=== PATIENT | male | born 1935 | race Caucasian/White ===

== ENCOUNTER → 2016-08-05 | Outpatient (CLI) | payer BC ==
[~2016-08-05] MED LIST: ALPPOPS5 OPB; BROM100T PO; CALC-51; CHOL1CAP67; CYAN10005 PO; DUTA0.5C PO; GLUC500C4 PO; HYDRSOL30; HYDRSOL30 OTB; LEVO0.5S24 OPB; LEVO75TA PO; MULT-506 PO; PROP15TA; SILD100T PO; TAMS0.4C38 PO; TEMAZAPAM PO; TERB1CRE10 TOP; UNABLE; [UNRECOGNIZED DRUG - CODE]; [UNRECOGNIZED DRUG - OTHER] OTB
[2016-08-05 10:34] LABS: HEMATOCRIT 41.5 % (42-52); MEAN CELL VOLUME 87.2 fL (80-100); MEAN CORPUSCULAR HEMOGLOBIN 30.5 pg (25-34); MEAN CORPUSCULAR HGB CONC 34.9 g/dl (32-36); MEAN PLATELET VOLUME 9.3 fL (7.4-10.4); PLATELET COUNT 177 K/uL (130-400); RED BLOOD COUNT 4.76 M/uL (4.7-6.1); WHITE BLOOD COUNT 4.93 K/uL (4.8-10.8)
[2016-08-05 10:45] LABS: ALT/SGPT 26 U/L (12-78); BLOOD UREA NITROGEN 15 mg/dl (7-18); BUN/CREATININE RATIO 13.2 (10-20); CALCIUM 8.7 mg/dl (8.5-10.1); CARBON DIOXIDE 26 mmol/L (21-32); CHLORIDE 108 mmol/L (98-107); GLUCOSE 97 mg/dl (70-99); SODIUM 143 mmol/L (136-145)
[2016-08-05 10:47] LABS: ALB/GLOB RATIO 1.1 (0.9-2); ALKALINE PHOSPHATASE 74 U/L (45-117); AST/SGOT 16 U/L (15-37)
== END | disposition home or self-care (01) ==
LOC: C.LABFOXMH 10:14
PROVIDERS: ATTEND Internal Medicine
DX: R19.7 Diarrhea, unspecified (principal)

== ENCOUNTER 2016-12-04 12:27 | Emergency (ER) | payer BC ==
[~2016-12-04] VITALS: Ht 177.8 cm; Wt 95.7 kg
[~2016-12-04 12:27] MED LIST changes: -CYAN10005 PO; -HYDRSOL30 OTB; -LEVO0.5S24 OPB; -MULT-506 PO; -TERB1CRE10 TOP; -[UNRECOGNIZED DRUG - OTHER] OTB
[2016-12-04 12:29] VITALS: TEMP 36.6; Ht 177.8 cm; Wt 95.7 kg
[2016-12-04] MEDS ORDERED: XYLOCAINE 1%/SOD BICARB 20 ML VIAL INFIL STA (12:49)
[2016-12-04] MEDS ORDERED: [UNRECOGNIZED DRUG - OTHER] OTB (13:27)
[2016-12-04] MEDS ORDERED: HYDRSOL30 OTB (13:29)
[2016-12-04] MEDS ORDERED: LEVO0.5S24 OPB (13:32)
[2016-12-04] MEDS ORDERED: TERB1CRE10 TOP (13:37)
[2016-12-04] MEDS ORDERED: CYAN10005 PO (13:38)
[2016-12-04] MEDS ORDERED: MULT-506 PO (13:38)
--- NOTE | 2016-12-04 13:40 | EMERGENCY ROOM VISIT NOTE ---
ED Visit Note First contact with patient: 12:36 Chief Complaint: "Cut on right thumb". History of Present Illness: This patient is a 81-year-old male who presents to the Emergency Department via private vehicle for evaluation of their right thumb laceration. Patient sustained the laceration earlier today while walking in [place] at approximately 11 AM at the corner of [facility] at [facility]. They report a moderate amount of bleeding initially. They deny any numbness or tingling into the distal extremity. They report no decreased range of motion of the affected digit. Patient rates his current discomfort as a 2/10. Patient's Tetanus status is believed to be currently up-to-date. Medications: As noted below Allergies: No known allergies PMH: No pertinent past medical history SHx: Patient lives locally at [facility] ROS: All pertinent positive and negative review of systems are appropriately documented in the History of Present Illness. Physical Exam: VITAL SIGNS - Vital signs and nursing notes were reviewed. GENERAL -81-year-old male appearing his stated age who is in no acute distress. Communicates well with provider and answers questions appropriately. SKIN - There is a 1.5 cm long laceration noted along the distal aspect of the right thumb there is also an abrasion overlying the anterior portion of the nose. The edges gape apart with traction. No foreign bodies appreciated. Upon further examination there are no deep structures including vessel, tendon, or bony structures appreciated. There is no active bleeding noted. HEAD - NC/AT. No koroma signs or raccoons eyes EYES - PERRL with EOMI bilaterally. Sclera anicteric. Palpebral conjunctiva pink and moist with no injection noted. EARS - No deformities of external structures noted on gross examination bilaterally. No blood from ear canals. There are bilateral hearing aids in place. NOSE - Midline and without cyanosis. No epistaxis or purulent drainage noted. Septum midline without deviation or septal hematoma noted. MOUTH/OROPHARYNX - Without perioral cyanosis. Buccal mucosa pink and moist and without leukoplakia. Tongue midline with equal elevation of palate bilaterally. No tonsillar hypertrophy, erythema, or exudates noted. Fair dentition noted. No blood in the posterior pharynx NECK - Neck with FROM. Supple to palpation. No C-spine tenderness. LUNGS - Chest wall symmetric without accessory muscle use, intercostals retractions, or central cyanosis. Normal vesicular breath sounds CTA B/L. No wheezes, rales, or rhonchi appreciated. EXTREMITIES -he is neurovascularly intact in the right upper extremity. +5/5 strength noted in UE/LE bilaterally. NEUROLOGIC - Cranial nerves II through XII grossly intact. Sensory intact to light touch throughout. Patellar reflexes +2/4. PSYCH - A&Ox3 and cooperates fully with examiner. Pt is very pleasant and interacts well with examiner. ED Course: Patient was seen and evaluated by myself. Risks and benefits of performing primary wound closure versus no repair were discussed with the patient who verbalizes understanding. There was no tenderness to palpation overlying the nose, or the bone portion of the digit. I suspect the patient has sustained a small laceration to the thumb, and abrasion to the nose. Patient is alert and oriented 3, and does not take anticoagulants. There is no evidence of trauma to the head other than a small abrasion to the nose. Patient believes that he did not strike the ground hard. Verbal consent was obtained prior to performing the procedure. 4 cc of 50/50 ratio 1% buffered lidocaine and 0.5% to give a cane was used to perform a digital block of the right first digit. The wound was cleansed and prepped in the typical sterile fashion utilizing normal saline and Betadine. The wound was sterilely draped. Once proper anesthetization was established, the wound was further examined and demonstrated no deep involvement. The wound was copiously irrigated with normal saline and Betadine. The wound was closed using 2 simple, 5-0 nylon sutures with the wound edges being well approximated. Patient tolerated the procedure well. No complications were met. The wound was cleansed and dressed with a Bacitracin dressing. Patient educated on worrisome symptoms for return visit to the Emergency Department. Patient discharged to home in good condition. Benefits versus risk of obtaining a CT scan of the head was discussed with the patient, and at this time it was a speck flea declined. In the evaluation and treatment of this patient, the following differential diagnoses were considered: Nasal bone fracture, contusion, laceration, Concussion, Contrecoup Injury, Brain Tumor, Depression, Encephalitis, Hypothyroidism, Meningitis, CVA, TIA, Migraine, Cluster Headache, Intracranial Abnormality, Intracranial Hemorrhage, Subdural Hematoma, Subarachnoid Hemorrhage , Hydrocephalus. Current/Historical Medications Scheduled Brimonidine Tartrate (Alphagan P), 1 DROP OPB BID Bromelains (Bromelain), 100 MG PO DAILY Calcium Carbonate-Vitamin D (Calcium), BID Cyanocobalamin (Vitamin B-12), Unknown Dose PO DAILY Dutasteride (Avodart), 0.5 MG PO HS Glucosamine Sulfate (Glucosamine), 500 MG PO BID Levothyroxine Sodium (Synthroid), 75 MCG PO DAILY Multivitamin (Multivitamin), 1 TAB PO DAILY Sildenafil Citrate (Viagra), 100 MG PO PRN Tamsulosin Hcl (Flomax), 0.4 MG PO HS [Eargene], 1 APPLN OTB BID [temazapam], 15 MG PO BID Scheduled PRN Hydrocortisone W/Acetic Acid (Acetasol Hc), 1 DROP OTB DAILY PRN for Itching Levofloxacin (Ophth) (Levofloxacin), 1 DROP OPB DAILY PRN for Itching Propantheline Hessel (Propantheline Hessel), for Pain Terbinafine Hcl (Topical) (Lamisil At Athletes Foot), 1 APPLN TOP DAILY PRN for ATHLETES FEET Miscellaneous Medications Hydrocortisone W/Acetic Acid (Acetasol Hc) Allergies Coded Allergies: No Known Allergies (Unverified , 12/04/16) Vital Signs Date Time Temp Pulse Resp B/P Pulse Ox O2 Delivery O2 Flow Rate FiO2 12/04/16 13:59 77 18 154/82 96 12/04/16 12:29 36.6 73 18 162/85 95 Room Air Medications Administered Medications (Trade) Dose Ordered Sig/Christian Route Start Time Stop Time Status Last Admin Dose Admin Lidocaine HCl (Buffered Lidocaine 1% Inj) 20 ml ONE STAT INFIL 12/04/16 12:49 12/04/16 12:50 DC 12/04/16 13:20 20 ML Departure Information Impression Primary Impression: Laceration Dispostion Home / Self-Care Condition GOOD Referrals Jamie Almonte (PCP) Patient Instructions [facility] Additional Instructions Discharge Instructions: You have received 2 sutures on your right thumb. These sutures are NOT dissolvable and WILL need to be removed by a health care provider in 10-12 days. You can return to the Emergency Department or contact your Primary Care Provider to have the sutures removed. Please wear the splint for comfort until the sutures are removed. Proper wound care is essential for adequate wound healing and infection prevention. You can shower and clean the wound with soap and water. Do not scour over the wound, pat dry with a towel. Do not submerse the wound (i.e. bathe or dish wash) until the sutures have been removed. You can use an antibiotic ointment with a dressing over the wound for the next 3-4 days. After this time you may leave the wound dry and open to the air. If crust develops over the wound you can use a Q-tip to apply a 1:1 peroxide:water solution to clean the wound. Look for signs of infection of the wound including: increased pain, swelling, foul discharge, streaking, or increased temperature. If any of these are noticed you should return to the Emergency Department for further assessment and treatment. As with any laceration you may have received nerve damage to the surrounding tissues. This damage may or may not be permanent. You should keep the area covered with sunscreen for the first 6 months to 1 year when at risk for exposure to help minimize scarring. You can also use scar reducing creams or Vitamin E oil to help minimize scarring. For pain control, you can use the following [id number] medicines (if >12 yo): - Regular strength (325mg/tab) Tylenol (acetaminophen) 2 tabs every 4-6 hours as needed. Do not exceed 12 tablets in a 24 hour period. Avoid taking more than 3 grams (3000 mg) of Tylenol per day. This includes any other sources of acetaminophen you may take on a regular basis. Please follow-up with your family doctor at [facility] on Tuesday for recheck of your wounds. Please also inquire about your tetanus status. Return to the emergency department if your symptoms worsen despite treatment course outlined above.
[2016-12-04 13:59] VITALS: BP 154/82; PULSE 77; O2SAT 96
== END 2016-12-04 14:00 | disposition home or self-care (01) ==
LOC: C.EDB 12:28 → C.EDD 14:00
DX: S61.011A Laceration without foreign body of right thumb without damage to nail, initial encounter (principal); W19.XXXA Unspecified fall, initial encounter; Y92.480 Sidewalk as the place of occurrence of the external cause; Z79.899 Other long term (current) drug therapy

== ENCOUNTER → 2017-07-18 | Outpatient (CLI) | payer BC ==
[~2017-07-18] MED LIST changes: -CHOL1CAP67; +CYAN10005 PO; +HYDRSOL30 OTB; +LEVO0.5S24 OPB; +MULT-506 PO; +TERB1CRE10 TOP; -UNABLE; -[UNRECOGNIZED DRUG - CODE]; +[UNRECOGNIZED DRUG - OTHER] OTB
--- NOTE | 2017-07-18 09:25 | DIAGNOSTIC IMAGING REPORT ---
KUB CLINICAL HISTORY: N20.0 [id number] benign prostatic hypertrophy with urinary retention COMPARISON STUDY: 07/30/2016 FINDINGS: There is no pathologic bowel dilatation. There are no calcifications suspicious for renal calculi. Pelvic basin calcifications remain unchanged in orientation and likely are phleboliths. Degenerative changes are present within the spine. IMPRESSION: No renal or ureteral calculi are visualized. Electronically signed by: Ben Mckee M.D. 07/18/2017 9:24 AM Dictated Date/Time: 07/18/2017 9:23 AM
[2017-07-18 09:39] LABS: HEMATOCRIT 44.2 % (42-52); HEMOGLOBIN 14.7 g/dL (14.0-18.0); MEAN CELL VOLUME 88.9 fL (80-100); MEAN CORPUSCULAR HEMOGLOBIN 29.6 pg (25-34); MEAN CORPUSCULAR HGB CONC 33.3 g/dl (32-36); MEAN PLATELET VOLUME 9.2 fL (7.4-10.4); PLATELET COUNT 179 K/uL (130-400); RED CELL DISTRIBUTION WIDTH CV 13.4 % (11.5-14.5); RED CELL DISTRIBUTION WIDTH SD 43.5 fL (36.4-46.3); WHITE BLOOD COUNT 6.26 K/uL (4.8-10.8)
[2017-07-18 10:08] LABS: ALBUMIN 3.6 gm/dl (3.4-5.0); ALT/SGPT 24 U/L (12-78); BLOOD UREA NITROGEN 18 mg/dl (7-18); CALCIUM 8.7 mg/dl (8.5-10.1); CARBON DIOXIDE 24 mmol/L (21-32); CREATININE 1.05 mg/dl (0.60-1.40); GLUCOSE 113 mg/dl (70-99); POTASSIUM 3.6 mmol/L (3.5-5.1); SODIUM 139 mmol/L (136-145)
[2017-07-18 10:18] LABS: ALKALINE PHOSPHATASE 85 U/L (45-117); AST/SGOT 13 U/L (15-37); TOTAL PROTEIN 6.6 gm/dl (6.4-8.2)
== END | disposition home or self-care (01) ==
LOC: C.RAD 08:10
PROVIDERS: ATTEND Urology
DX: N40.1 Benign prostatic hyperplasia with lower urinary tract symptoms (principal); R33.9 Retention of urine, unspecified; N20.0 Calculus of kidney; Z87.442 Personal history of urinary calculi

== ENCOUNTER → 2017-08-17 | Outpatient (CLI) | payer BC ==
[2017-08-17 09:47] LABS: HEMATOCRIT 40.5 % (42-52); HEMOGLOBIN 13.6 g/dL (14.0-18.0); MEAN CORPUSCULAR HEMOGLOBIN 29.6 pg (25-34); MEAN CORPUSCULAR HGB CONC 33.6 g/dl (32-36); MEAN PLATELET VOLUME 9.3 fL (7.4-10.4); PLATELET COUNT 178 K/uL (130-400); RED CELL DISTRIBUTION WIDTH CV 13.1 % (11.5-14.5); RED CELL DISTRIBUTION WIDTH SD 42.1 fL (36.4-46.3); WHITE BLOOD COUNT 5.35 K/uL (4.8-10.8)
[2017-08-17 10:00] LABS: ALBUMIN 3.1 gm/dl (3.4-5.0); ALT/SGPT 21 U/L (12-78); AST/SGOT 12 U/L (15-37); BLOOD UREA NITROGEN 19 mg/dl (7-18); CALCIUM 8.4 mg/dl (8.5-10.1); CARBON DIOXIDE 25 mmol/L (21-32); CREATININE 1.07 mg/dl (0.60-1.40); GLUCOSE 102 mg/dl (70-99); POTASSIUM 4.1 mmol/L (3.5-5.1); SODIUM 141 mmol/L (136-145)
[2017-08-17 10:07] LABS: ALKALINE PHOSPHATASE 81 U/L (45-117); TOTAL PROTEIN 5.9 gm/dl (6.4-8.2)
== END | disposition home or self-care (01) ==
LOC: C.LABFOXMH 07:50
PROVIDERS: ATTEND Internal Medicine Hospice and Palliative Medicine
DX: N20.0 Calculus of kidney (principal)